=== PATIENT | male | born 1965 | race Hispanic/Latino ===

== ENCOUNTER 2021-10-26 17:41 | Emergency (ER) | payer BC ==
[~2021-10-26] VITALS: Ht 177.8 cm; Wt 100.0 kg
[2021-10-26] MEDS ORDERED: WARFARIN SODIU2.5 MG PO (17:49)
[2021-10-26] MEDS ORDERED: JANTOVEN6 MG PO (17:54)
[2021-10-26] MEDS ORDERED: CHLORTHALIDONE25 MG PO (17:55)
[2021-10-26 18:30] LABS: INTERNATIONAL NORMALIZED RATIO 2.6 RATIO (0.7-1.3); PROTHROMBIN TIME 25.2 SECONDS (9.0-12.5)
[2021-10-26] MEDS ORDERED: HYDROCO/APAP1 TA9 PO (19:44)
[2021-10-26 20:02] VITALS: BP 139/93
== END 2021-10-26 20:00 | disposition home or self-care (01) | DRG 563 ==
LOC: ED 17:41
PROVIDERS: Family Medicine
DX: S83.92XA Sprain of unspecified site of left knee, initial encounter (principal); I10 Essential (primary) hypertension; X50.0XXA Overexertion from strenuous movement or load, initial encounter; Z86.711 Personal history of pulmonary embolism; Z86.718 Personal history of other venous thrombosis and embolism